=== PATIENT | female | born 1990 | race Caucasian/White ===

== ENCOUNTER 2017-04-21 01:45 | Emergency (ER) | payer OTHER ==
[~2017-04-21] VITALS: Ht 170.2 cm; Wt 108.9 kg
[~2017-04-21 01:45] MED LIST: ACETAMINOPHEN-1 EAC1 PO; IBUPROFEN 600600 M1 PO; LORTAB PO
[2017-04-21] MEDS ORDERED: NOHOMEMEDICATIONS (02:11)
[2017-04-21] MEDS ORDERED: BACTRIM DS TAB1 EACH PO (02:58)
[2017-04-21] MEDS ORDERED: ULTRAM 50MG TAB50 MG PO (02:58)
[2017-04-21 03:47] VITALS: BP 136/89
== END 2017-04-21 04:55 | disposition home or self-care (01) ==
LOC: ER 01:45
DX: N64.89 Other specified disorders of breast (principal); N61.0 Mastitis without abscess; F10.99 Alcohol use, unspecified with unspecified alcohol-induced disorder; Z98.890 Other specified postprocedural states; Z88.1 Allergy status to other antibiotic agents; Z88.0 Allergy status to penicillin